=== PATIENT | female | born 1970 | race Caucasian/White ===

== ENCOUNTER 2016-10-23 13:28 | Emergency (ER) | payer OTHER ==
[2016-10-23 14:42] VITALS: BP 148/95
--- NOTE | 2016-10-23 14:58 | Emergency Department Report ---
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 She reports that the pain is sharp and stabbing. Reports pain is 10 out of 10. She reports shortness of breath. Denies any coughing reports headache. She denies any medical problems. Denies any history of control pills, personal history of clots or family history of clots. She has family history of high blood pressure and an enlarged heart. Denies any recent long distance travel by car or airplane. - ROS Review of Systems: All systems are negative unless stated in HPI above. - Exam Vital Signs: Vital Signs 10/23/16 14:35 Temperature 98.4 F Pulse Rate 66 Respiratory 18 Rate Blood Pressure 148/95 O2 Sat by Pulse 100 Oximetry Physical Exam: General: This is a 46-year-old female well-nourished well-developed nontoxic in appearance. CV: S1, S2. Regular rate and rhythm. Lungs: Clear to auscultate bilaterally. No rhonchi wheezes or rales. Normal work of breathing MSE screening note: Focused history and physical exam performed. Due to findings the following was ordered:see [facility] ED Medical Decision Making - Medical Decision Making Medical decision making: Patient seen by provider in triage area. Appropriate protocol activated and patient to main ED to be seen by physician. ED Disposition for MSE Condition: Stable
--- NOTE | 2016-10-24 08:43 | ED Elopement Review ---
ED Pt Elopement review - Call Back decision Pt Call Back Decision: No action required
== END 2016-10-23 22:00 | disposition left against medical advice (07) ==
LOC: ED 13:28
DX: R07.89 Other chest pain (principal); M54.9 Dorsalgia, unspecified; R06.02 Shortness of breath; Z53.21 Procedure and treatment not carried out due to patient leaving prior to being seen by health care provider
CPT/HCPCS: 93005; 93010

== ENCOUNTER 2022-07-07 10:48 | Emergency (ER) | payer SELFPAY ==
[2022-07-07] MEDS ORDERED: ACETAMINOPHEN 500 MG TAB PO ONE (12:21)
[2022-07-07] MEDS ORDERED: cefTRIAXone/NS 1 GM/50 ML 1 GM/50 ML BAG IV ONE (12:58)
[2022-07-07] MEDS ORDERED: SODIUM CHLORIDE 0.9% 1000 ML 1,000 ML IV ONE (12:58)
[2022-07-07 13:21] LABS: Hematocrit 36.2 % (30.3-42.9); Hemoglobin 11.9 gm/dl (10.1-14.3); Mean Corpuscular HGB Conc 33 % (30-34); Mean Corpuscular Volume 95 fl (79-97); Platelet Count 196 K/mm3 (140-440); Red Blood Count 3.81 M/mm3 (3.65-5.03); Red Cell Distribution Width 13.8 % (13.2-15.2)
--- NOTE | 2022-07-07 13:30 | Emergency Department Report ---
ED Dysuria HPI - HPI Chief Complaint: Fever Stated Complaint: FEVER/HEADACHE Time Seen by Provider: 07/07/22 12:58 Duration: 3 Days Location of Discomfort: Suprapubic Severity: Mild Symptoms: Dysuria: Yes, Frequency: No, Suprapubic Pain: Yes, Flank Pain: No, Fever: Yes, Hematuria: No, Abdominal Pain: No, Previous UTI's: Yes ED Review of Systems ROS: Stated complaint: FEVER/HEADACHE Other details as noted in HPI Comment: All other systems reviewed and negative ED Past Medical Hx - Past Medical History Previous Medical History?: Yes Hx Hypertension: Yes - Surgical History Past Surgical History?: No - Family History Family history: no significant - Social History Smoking Status: Never Smoker Substance Use Type: None - Medications Home Medications: Home Medications Medication Instructions Recorded Confirmed Last Taken Type Ondansetron [Zofran Odt] 4 mg PO Q8HR #30 tab.rapdis 11/11/19 Unknown Rx Pantoprazole [Protonix TAB] 40 mg PO DAILY #30 tablet 11/11/19 Unknown Rx amLODIPine 1 tab PO DAILY 11/11/19 11/11/19 Unknown History Sulfamethoxazole/Trimethoprim 1 each PO BID #10 tablet 07/07/22 Unknown Rx [Bactrim DS TAB] Dysuria Exam - Exam General: Vital signs noted. No distress. Alert and acting appropriately. Exam: Yes Moist Mucous Membranes, No CVA Tenderness, No Abdominal Tenderness, No Rigidity or Guarding Labs: Lab Results 07/07/22 Range/Units 13:00 WBC 7.7 (4.5-11.0) K/mm3 RBC 3.81 (3.65-5.03) M/mm3 Hgb 11.9 (10.1-14.3) gm/dl Hct 36.2 (30.3-42.9) % MCV 95 (79-97) fl MCH 31 (28-32) pg MCHC 33 (30-34) % RDW 13.8 (13.2-15.2) % Plt Count 196 (140-440) K/mm3 ED Course Vital Signs 07/07/22 11:36 Temperature 102.9 F H Pulse Rate 102 H Respiratory 18 Rate Blood Pressure 115/74 [Right] O2 Sat by Pulse 100 Oximetry ED Medical Decision Making - Lab Data Result diagrams: 07/07/22 13:00 07/07/22 13:00 - Medical Decision Making Vital Signs 07/07/22 11:36 Temperature 102.9 F H Pulse Rate 102 H Respiratory 18 Rate Blood Pressure 115/74 [Right] O2 Sat by Pulse 100 Oximetry Lab Results 07/07/22 07/07/22 07/07/22 Range/Units 13:00 13:00 Unknown WBC 7.7 (4.5-11.0) K/mm3 RBC 3.81 (3.65-5.03) M/mm3 Hgb 11.9 (10.1-14.3) gm/dl Hct 36.2 (30.3-42.9) % MCV 95 (79-97) fl MCH 31 (28-32) pg MCHC 33 (30-34) % RDW 13.8 (13.2-15.2) % Plt Count 196 (140-440) K/mm3 Sodium 139 (137-145) mmol/L Potassium 4.1 (3.6-5.0) mmol/L Chloride 103.4 (98-107) mmol/L Carbon Dioxide 25 (22-30) mmol/L Anion Gap 15 mmol/L BUN 13 (7-17) mg/dL Creatinine 1.0 (0.6-1.2) mg/dL Estimated GFR 58 ml/min BUN/Creatinine Ratio 13 % Glucose 163 H (65-100) mg/dL Calcium 8.8 (8.4-10.2) mg/dL Urine Color Yellow (Yellow) Urine Turbidity Hazy (Clear) Specific Kyle (Man) 1.010 (1.003-1.030) Ur Protein (Man) 2+ (Negative) mg/dL Ur Ketones (Man) Negative (Negative) Ur Nitrite (Man) Positive (Negative) Ur Reducing Substances Not Reportable Urine Bilirubin (Man) Negative (Negative) Urine Ictotest Not Reportable Leukocyte Esterase (Man) Negative (Negative) Urine WBC (Auto) > 182.0 H (0.0-6.0) /HPF Urine RBC (Auto) 10.0 (0.0-6.0) /HPF U Epithel Cells (Auto) 2.0 (0-13.0) /HPF Urine Bacteria (Auto) 4+ (Negative) /HPF Urine RBC (Manual) 2+ (Negative) Urine WBC Clumps 2+ /HPF Ur Transition Epith Cell 6 /HPF Urine Mucus Few /HPF Urine HCG, Qual Negative (Negative) Critical care attestation.: If time is entered above; I have spent that time in minutes in the direct care of this critically ill patient, excluding procedure time. ED Disposition Clinical Impression: UTI (urinary tract infection) Disposition: 04 [facility]ILITY Is pt being admited?: No Does the pt Need Aspirin: No Condition: Stable Instructions: Urinary Tract Infection, Adult, [id number] Additional Instructions: MEDS ORDERED TODAY MOTRIN OR TYLENOL FOR PAIN OVER THE COUNTER AZO FOR PAIN FOLLOW UP WITH PCP WHEN YOU FINISH ANTIBIOTICS REFERRAL BELOW Referrals: MARGARITO SANDHU MD [Staff Physician] - 3-5 Days Forms: Work/School Release Form(ED) Time of Disposition: 16:10
[2022-07-07 14:26] LABS: Calcium 8.8 mg/dL (8.4-10.2)
[2022-07-07 15:36] LABS: Bacteria,Urine 4+ /HPF (Negative); Mucus,Urine FEW /HPF
[2022-07-07 15:48] LABS: Color,Urine Yellow (Yellow); WBC,Urine > 182.0 /HPF (0.0-6.0)
[2022-07-07 16:02] LABS: HCG Qualitative,Urine Negative (Negative)
[2022-07-07 16:41] VITALS: BP 119/78
== END 2022-07-07 16:41 ==
LOC: ED 10:48
DX: N39.0 Urinary tract infection, site not specified (principal); I10 Essential (primary) hypertension; Z98.890 Other specified postprocedural states; Z79.899 Other long term (current) drug therapy
CPT/HCPCS: 36415; 80048; 81001; 81025; 85027; 96365; 99283; J0696; J7030